=== PATIENT | male | born 1940 | race Caucasian/White ===

== ENCOUNTER 2019-04-26 09:10 | Emergency (ER) | payer OTHER, SELFPAY ==
[2019-04-26 09:15] VITALS: BP 146/67; PULSE 74; RESP 16; TEMP 36.5; O2SAT 93
[2019-04-26] MEDS: LIDO 1%/SOD BICARB 8.4% (10ML) 10 ML SYRINGE INJ (09:31)
[2019-04-26] MEDS: TET,DIPH,PERTUSS(ACELL),VAC/PF 0.5 ML SYRINGE IM (09:34)
--- NOTE | 2019-04-26 10:05 | ED_ITS ---
HPI - Wound/Laceration General Chief Complaint: Wound/Laceration Stated Complaint: Rt finger laceration Time Seen by Provider: 04/26/19 09:11 Source: patient Mode of arrival: Ambulatory Limitations: no limitations History of Present Illness HPI narrative: 78M nonsmoker with non contributory medical history presents with his friend for evaluation of a laceration to his right index finger. Just prior to arrival the patient was using a sharp blade to separate chunks of ice when it slipped and he lacerated his finger. Patient has full range of motion denies any numbness, tingling or weakness. Tetanus will need to be updated Onset (ago): minute(s) Place: outdoors Patient tetanus UTD: No Context: accidental Associated symptoms: none Treatments prior to arrival: bandage Related Data Previous Rx's Medication Instructions Recorded cephalexin [Keflex] 500 mg PO QID 7 Days #28 cap 04/26/19 Allergies Allergy/AdvReac Type Severity Reaction Status Date / Time No Known Drug Allergies Allergy Verified 04/26/19 09:40 Review of Systems Constitutional Constitutional: Denies chills, Denies fatigue, Denies fever(s), Denies frequent falls, Denies lethargy and Denies weakness Eyes Eyes: Denies change in vision, Denies eye discharge, Denies irritation and Denies loss of vision ENT Ears, Nose, Mouth, and Throat: Denies change in voice, Denies dizziness, Denies neck pain, Denies sore throat and Denies throat swelling Cardiovascular Cardiovascular: Denies chest pain, Denies irregular heart rhythm, Denies ligh theadedness, Denies palpitations, Denies dyspnea, Denies dyspnea on exertion and Denies orthopnea Respiratory Respiratory: Denies cough, Denies dyspnea, Denies dyspnea on exertion and Denies wheezing Gastrointestinal Gastrointestinal: Denies abdominal pain, Denies change in bowel habits, Denies diarrhea, Denies nausea and Denies vomiting Genitourinary Genitourinary: Denies hematuria, Denies flank pain, Denies urinary incontinence and Denies urinary urgency Musculoskeletal Musculoskeletal: Denies back pain, Denies muscle weakness, Denies neck pain, Denies numbness and Denies tingling Integumentary/Breasts Skin/Breast: Denies pruritus, Denies erythema, Denies rash and Reports wounds Neurologic Neurologic: Denies behavioral changes, Denies confusion, Denies dizziness, Denies frequent falls, Denies loss of vision, Denies numbness, Denies tingling and Denies weakness Psychiatric Psychiatric: Denies anxiety, Denies behavioral changes, Denies confusion, Denies depression, Denies homicidal ideation and Denies suicidal ideation Endocrine Endocrine: Denies fatigue, Denies flushing and Denies palpitations Hematologic/Lymphatic Hematologic/Lymphatic: Denies easy bruising Allergic/Immunologic Allergic/Immunologic: Denies urticaria, Denies throat swelling and Denies wheezing Exam Narrative Exam Narrative: GEN: AOx3 and in mild distress EYES: Pupils are equal, round, and reactive to light and accommodation. Extraoccular muscles are intact bilaterally. There is no subconjunctival hemor rhage or exudate. CHEST: Lungs are clear to auscultation bilaterally and free of wheezes, rales, or rhonchi. Heart rate is regular rhythm, there are no murmurs, clicks, rubs, or gallops. There is no chest wall tenderness. ABD: Abdomen is soft and nontender. There is no guarding or rebound. Bowel sounds are normal in all 4 quadrants. There is no mass or organomegaly. EXT: 1cm laceration to the tip of the index finger with a small amount of nail involvement. There is minimal active bleeding. Sensation intact, viewed in a bloodless field and no bony involvement. Sensation intact SKIN: Warm, pink, and dry. No erythema or rash Initial Vital Signs Initial Vital Signs: Vital Signs Temperature 97.7 F 04/26/19 09:15 Pulse Rate 74 04/26/19 09:15 Respiratory Rate 16 04/26/19 09:15 Blood Pressure 146/67 H 04/26/19 09:15 Pulse Oximetry 93 04/26/19 09:15 Procedures Laceration Repair Laceration 1: Side (If applicable): right Size (cm): 1 Description: linear Depth: simple, single layer Skin layer closed with: nylon Size (cm): 5-0 Number of sutures: 5 Nerve Block Nerve Block 1: Time out performed: Yes Course Orders Ordered: Discontinued Medications Bacitracin (Bacitracin) 1 applic TOP NOW ONE Stop: 04/26/19 09:41 Last Admin: 04/26/19 18:54 Dose: Not Given Documented by: MEISENB Diphtheria/Tetanus/Acell Pertussis (Adacel) 0.5 ml IM .ONCE ONE Stop: 04/26/19 09:17 Last Admin: 04/26/19 09:34 Dose: 0.5 ml Documented by: MEISENWill Lidocaine/Sodium Bicarbonate (Buffered Lidocaine 10 Ml Syr) 10 ml INJ NOW ONE Stop: 04/26/19 09:17 Last Admin: 04/26/19 09:31 Dose: 10 ml Documented by: MEISENWill Vital Signs Vital signs: Vital Signs - 8 hr 04/26/19 09:15 Temperature 97.7 F Pulse Rate 74 Respiratory Rate 16 Blood Pressure 146/67 H Pulse Oximetry 93 Discharge Plan Departure Patient Disposition: Home Clinical Impression: Laceration Discharge Date/Time: 04/26/19 10:14 Instructions: DI for Laceration Repair Activity Restrictions/Additional Instructions: Please keep the wound clean and dry to the best of your ability. Please monitor for signs of infection such as redness to the skin or increasing pain. Have the sutures removed by your doctor in about 7 days. If you are unable to get into your doctor, we would be happy to remove the sutures in that same timeframe. Prescriptions: New cephalexin [Keflex] 500 mg capsule 500 mg PO QID 7 Days Qty: 28 RF: 0
[2019-04-26 10:13] VITALS: BP 114/71; PULSE 70; RESP 18; O2SAT 95
--- NOTE | 2019-04-26 10:13 | PC.NURSE ---
4 bandaid provided to pt.
== END 2019-04-26 10:14 | disposition home or self-care (01) ==
LOC: ED 10:04
PROVIDERS: Emergency Provider Emergency Medicine
DX: S61.210A Laceration without foreign body of right index finger without damage to nail, initial encounter (principal); Z23 Encounter for immunization
CPT/HCPCS: 12001; 64450; 90471; 99283; 90715